=== PATIENT | female | born 1985 | race Caucasian/White ===

== ENCOUNTER 2016-11-21 09:49 | Inpatient (IN) ==
[2016-11-21 10:04] LABS: URINE SOURCE CLEAN CATCH
[2016-11-21 10:07] LABS: MANUAL DIFF NEEDED? NO
[2016-11-21 10:09] LABS: BILIRUBIN URINE NEGATIVE (NEGATIVE); BLOOD URINE NEGATIVE (NEGATIVE); COLOR YELLOW; GLUCOSE URINE NEGATIVE (NEGATIVE); LEUKOCYTES URINE SMALL (NEGATIVE); NITRITE URINE NEGATIVE (NEGATIVE); PH URINE 5.5; PROTEIN URINE 50 mg/dL (NEGATIVE); SP GRAVITY URINE 1.037; TURBIDITY URINE TURBID (CLEAR); URINE MICRO REVIEW NEEDED? YES; UROBILINOGEN URINE NORMAL (NORMAL)
[2016-11-21] MEDS ORDERED: ATIVAN IM ONE (10:09)
[2016-11-21 10:17] LABS: BASO% 0.4 % (0.0-0.8); EOS# 0.04 X1000 (0.0-0.7); EOS% 0.2 % (0.0-10.0); HEMATOCRIT 40.2 % (37.0-47.0); HEMOGLOBIN 13.9 g/dL (12.0-16.0); IMM GRAN# 0.06 X1000 (0.0-0.04); IMM GRAN% 0.3 % (0.0-0.5); LYMPH# 3.91 X1000 (1.2-3.4); LYMPH% 20.5 % (20.5-51.1); MCH 30.3 PG (27-31); MCHC 34.6 g/dL (33-37); MCV 87.8 FL (81-99); MONO# 1.29 X1000 (0.11-0.59); MONO% 6.8 % (1.7-9.3); MPV 10.3 FL (7.4-10.4); NEUT% 71.8 % (42.2-75.2); PLT 331 X1000 (130-400); RBC 4.58 XMIL (4.2-5.4)
[2016-11-21 10:27] LABS: UR EPITHELIAL CELLS <10 /HPF (<10); URINE BACTERIA 2+ /HPF; URINE CASTS NONE SEEN; URINE CULTURE NEEDED? YES; URINE RBC <10 /HPF (<10); URINE WBC TNTC /HPF (<10)
[2016-11-21 10:30] LABS: AGAP 17; ALBUMIN 4.5 g/dL (3.5-5.0); ALKALINE PHOSPHATASE 48 U/L (32-104); BUN 11 mg/dL (8-22); CALCIUM 9.1 mg/dL (8.8-10.2); CHLORIDE 99 mmol/L (98-107); COSMO 276; GOT 18 U/L (10-30); GPT 19 U/L (10-36); POTASSIUM 3.6 mmol/L (3.5-5.1); SODIUM 139 mmol/L (136-145); TCO2 23 mmol/L (25-35); TOTAL BILIRUBIN 0.41 mg/dL (0.20-1.00); TOTAL PROTEIN 7.2 g/dL (6.3-8.3)
[2016-11-21 10:46] LABS: UR AMPHETAMINES MT PRESUMPTIVE POS (NONE DETECT); UR BARBITUATES MT NONE DETECTED (NONE DETECT); UR BENZODIAZ MT NONE DETECTED (NONE DETECT); UR CANNABIS MEDTOX PRESUMPTIVE POS (NONE DETECT); UR COCAINE MT NONE DETECTED (NONE DETECT); UR METHADONE MEDTOX NONE DETECTED (NONE DETECT); UR OPIATES MT NONE DETECTED (NONE DETECT); UR OXYCODONE MEDTOX NONE DETECTED (NONE DETECT); UR PCP MEDTOX NONE DETECTED (NONE DETECT)
[2016-11-21] MEDS ORDERED: SEPTRA DS PO ONE (10:48)
[2016-11-21 10:49] LABS: FREE T4 1.6 ng/dL (0.93-1.70)
--- NOTE | 2016-11-21 12:38 | PROVIDER DOCUMENTATION ---
This chart was entered by Evens Antoine Scribe, acting as scribe for Hudson Mendez CRNP. HPI-Psychological Disorder - General Chief Complaint: Psych Stated Complaint: PSYCH Time Seen by Provider: 11/21/16 09:59 Source: patient Unable to obtain history due to:: altered Allergies/Adverse Reactions: Patient Allergies Allergy/AdvReac Type Severity Reaction Status Date / Time cephalexin monohydrate * Allergy Severe RASH Verified 11/08/16 02:23 [From Keflex] Cephalosporins Allergy Severe RASH Verified 11/08/16 02:23 Penicillins Allergy Severe RASH Verified 11/08/16 02:23 Home Medications: Home Medication List Medication Instructions Recorded Confirmed Last Taken Type Cyanocobalamin [Vitamin B-12] 250 microgm PO DAILY tablet 11/11/16 Unknown Rx Ergocalciferol (Vitamin D2) 50,000 unit PO Q7D capsule 11/11/16 Unknown Rx [Vitamin D] Olanzapine [Zyprexa] 5 mg PO QAM #30 tablet 11/11/16 Unknown Rx Olanzapine [Zyprexa] 15 mg PO QHS #45 tablet 11/11/16 Unknown Rx Trazodone [Desyrel] 50 mg PO QHS #30 tablet 11/11/16 Unknown Rx - History of Present Illness-Psych Nature of Presenting Problem: Patient is 31 y/o F that presents to the ER via EMS after being found in a ditch by . She refused to get out, he called EMS. patient was found to be in a manic state. patient is rambling on and has flight of ideas. patient is difficult to communicate with. History of bipolar and schizophrenia Onset/Duration: reports: unsure Timing: reports: still present, constant Severity: reports: moderate, severe Situational problems related to:: reports: N/A Psychiatric Complaints: reports: altered mental status, hallucinating. denies: depressed, homicidal thoughts, suicidal ideation Substance Use: reports: marijuana Patient arrived by:: EMS called by spouse/family Similar Symptoms Previously?: Yes Recently seen or treated by another doctor?: No Review of Systems - Adult - REVIEW OF SYSTEMS - ADULT ROS:: unobtainable per condition Constitutional: denies: chills, fever Eyes: reports: no symptoms reported Ears, Nose, Mouth & Throat: reports: no symptoms reported Cardiovascular: denies: chest pain, orthopnea, palpitations Respiratory: denies: cough, shortness of breath, wheezing Gastrointestinal: denies: abdominal pain, diarrhea, nausea, vomiting Genitourinary: reports: no symptoms reported Musculoskeletal: reports: no symptoms reported Integumentary: reports: no symptoms reported Neurological: reports: no symptoms reported Psychiatric: reports: anxiety, alcohol/drug dependence, emotional problems. denies: depression, suicidal thoughts Endocrine: reports: no symptoms reported Hematologic/Lymphatic: reports: no symptoms reported Allergic/Immunologic: reports: no symptoms reported All Other Systems: Reviewed and Negative Past History - Adult - PAST MEDICAL HISTORY-ADULT Review of Records: reports: Old Records Reviewed, Nursing Assessment Review, Medications Reviewed Respiratory: reports: asthma Obstetrical/Gynecological: reports: ovarian cysts Psychiatric: reports: anxiety, bipolar, schizophrenia - PRIOR SURGERIES/PROCEDURES Surgical/Procedure History: reports: none - IMMUNIZATION STATUS Childhood Immunizations: See Nurse Assessment Flu Vaccine: See Nurse Assessment - FAMILY HISTORY Family History: reviewed, not pertinent - SOCIAL HISTORY Smoking: cigarettes, less than 1 pack/day Substance Use: marijuana Alcohol Use Frequency: occasionally Living Situation: family Physical Exam-Psych Focus - Physical Exam-Psych Exam Limited by: patient condition Initial Vital Signs Reviewed: Yes Appearance: anxious, disheveled, impaired insight, impaired recent memory, impaired remote memory, mild distress Neurological: anxious, disoriented x 3 Behavior/Eye Contact/Speech: increased rate of speech, belligerent Thoughts/Hallucinations: flight of ideas, incoherent. negative: persecution HENMT: normocephalic/atraumatic, moist mucous membranes, normal ENT inspection Neck: non-tender, full range of motion, normal inspection Respiratory: lungs clear, normal breath sounds, no respiratory distress, no accessory muscle use Cardiovascular: regular rate, rhythm, no edema, no murmur Abdominal Exam: normal bowel sounds, non tender, soft Extremity: normal range of motion, normal inspection, no pedal edema Integumentary: normal color, warm/dry Progress - PLAN OF CARE/RESULTS Progress/Plan/Lab Results: Vital Signs - 8 hr 11/21/16 09:53 Temperature 98.6 F Pulse Rate 98 H Respiratory Rate 18 Blood Pressure 136/87 O2 Sat by Pulse Oximetry 98 Laboratory Results - last 24 hr 11/21/16 11/21/16 11/21/16 09:54 09:54 10:00 WBC RBC Hgb Hct MCV MCH MCHC RDW Std Deviation Plt Count MPV Immature Gran % (Auto) Neut % (Auto) Lymph % (Auto) Antelope % (Auto) Eos % (Auto) Baso % (Auto) Immature Gran # (Auto) Neut # (Auto) Lymph # (Auto) Antelope # (Auto) Eos # (Auto) Baso # (Auto) Sodium Potassium Chloride Carbon Dioxide Anion Gap BUN Creatinine Estimated GFR/1.73 m2 BUN/Creatinine Ratio Glucose Calculated Osmolality Calcium Total Bilirubin AST ALT Alkaline Phosphatase Total Protein Albumin Globulin Albumin/Globulin Ratio Vitamin B12 TSH Free T4 Urine Source CLEAN CATCH Urine Color YELLOW Urine Turbidity TURBID Urine pH 5.5 Ur Specific [place] 1.037 Urine Protein 50 A Ur Glucose (Stick) NEGATIVE Ur Ketones (Stick) NEGATIVE Urine Blood NEGATIVE Urine Nitrite NEGATIVE Urine Bilirubin NEGATIVE Urobilinogen Dipstick NORMAL Urine Leukocytes SMALL A Urine WBC (Auto) TNTC A Urine RBC (Auto) <10 U Epithel Cells (Auto) <10 Urine Bacteria (Auto) 2+ Urine Crystals Not Reportable Small Round Cells Not Reportable Urine Casts NONE SEEN Urine Yeast-like Cells Not Reportable Urine Test NEGATIVE Urine Opiates Screen Ur Oxycodone Screen Urine Methadone Screen Ur Barbiturates Screen Ur Phencyclidine Scrn Ur Amphetamines Screen U Benzodiazepines Scrn Urine Cocaine Screen U Cannabinoids Screen Plasma/Serum Ethyl Alc 11/21/16 11/21/16 11/21/16 10:00 10:00 10:00 WBC 19.09 H RBC 4.58 Hgb 13.9 Hct 40.2 MCV 87.8 MCH 30.3 MCHC 34.6 RDW Std Deviation 13.3 Plt Count 331 MPV 10.3 Immature Gran % (Auto) 0.3 Neut % (Auto) 71.8 Lymph % (Auto) 20.5 Antelope % (Auto) 6.8 Eos % (Auto) 0.2 Baso % (Auto) 0.4 Immature Gran # (Auto) 0.06 H Neut # (Auto) 13.72 H Lymph # (Auto) 3.91 H Antelope # (Auto) 1.29 H Eos # (Auto) 0.04 Baso # (Auto) 0.07 Sodium 139 Potassium 3.6 Chloride 99 Carbon Dioxide 23 L Anion Gap 17 BUN 11 Creatinine 0.7 Estimated GFR/1.73 m2 > 60 BUN/Creatinine Ratio 16 Glucose 90 Calculated Osmolality 276 Calcium 9.1 Total Bilirubin 0.41 AST 18 ALT 19 Alkaline Phosphatase 48 Total Protein 7.2 Albumin 4.5 Globulin 2.7 Albumin/Globulin Ratio 1.7 Vitamin B12 439 TSH 1.88 Free T4 1.60 Urine Source Urine Color Urine Turbidity Urine pH Ur Specific [place] Urine Protein Ur Glucose (Stick) Ur Ketones (Stick) Urine Blood Urine Nitrite Urine Bilirubin Urobilinogen Dipstick Urine Leukocytes Urine WBC (Auto) Urine RBC (Auto) U Epithel Cells (Auto) Urine Bacteria (Auto) Urine Crystals Small Round Cells Urine Casts Urine Yeast-like Cells Urine Test Urine Opiates Screen Ur Oxycodone Screen Urine Methadone Screen Ur Barbiturates Screen Ur Phencyclidine Scrn Ur Amphetamines Screen U Benzodiazepines Scrn Urine Cocaine Screen U Cannabinoids Screen Plasma/Serum Ethyl Alc 11/21/16 10:27 WBC RBC Hgb Hct MCV MCH MCHC RDW Std Deviation Plt Count MPV Immature Gran % (Auto) Neut % (Auto) Lymph % (Auto) Antelope % (Auto) Eos % (Auto) Baso % (Auto) Immature Gran # (Auto) Neut # (Auto) Lymph # (Auto) Antelope # (Auto) Eos # (Auto) Baso # (Auto) Sodium Potassium Chloride Carbon Dioxide Anion Gap BUN Creatinine Estimated GFR/1.73 m2 BUN/Creatinine Ratio Glucose Calculated Osmolality Calcium Total Bilirubin AST ALT Alkaline Phosphatase Total Protein Albumin Globulin Albumin/Globulin Ratio Vitamin B12 TSH Free T4 Urine Source Urine Color Urine Turbidity Urine pH Ur Specific [place] Urine Protein Ur Glucose (Stick) Ur Ketones (Stick) Urine Blood Urine Nitrite Urine Bilirubin Urobilinogen Dipstick Urine Leukocytes Urine WBC (Auto) Urine RBC (Auto) U Epithel Cells (Auto) Urine Bacteria (Auto) Urine Crystals Small Round Cells Urine Casts Urine Yeast-like Cells Urine Test Urine Opiates Screen NONE DETECTED Ur Oxycodone Screen NONE DETECTED Urine Methadone Screen NONE DETECTED Ur Barbiturates Screen NONE DETECTED Ur Phencyclidine Scrn NONE DETECTED Ur Amphetamines Screen PRESUMPTIVE POS A U Benzodiazepines Scrn NONE DETECTED Urine Cocaine Screen NONE DETECTED U Cannabinoids Screen PRESUMPTIVE POS A Plasma/Serum Ethyl Alc Orders Category Date Time Status Regular Diet Diet 11/21/16 10:38 Active ALCOHOL BLOOD Stat Lab 11/21/16 10:00 Completed CBC WITH ELECTRONIC DIFF [HEME] Stat Lab 11/21/16 10:00 Completed COMPREHENSIVE METABOLIC PANEL [CHEM] Stat Lab 11/21/16 10:00 Completed FREE T4 Stat Lab 11/21/16 10:00 Completed TEST-URINE [PREG] Stat Lab 11/21/16 09:54 Completed TSH Stat Lab 11/21/16 10:00 Completed URINALYSIS W/POSS RFLX CULT-1 [URINALYSIS] Stat Lab 11/21/16 09:54 Completed URINE CULTURE [RM] Routine Lab 11/21/16 10:28 Received URINE DRUG SCREEN MEDTOX Routine Lab 11/21/16 10:27 Completed URINE MANUAL MICROSCOPIC [URINALYSIS] Stat Lab 11/21/16 09:54 Completed VITAMIN B12 Stat Lab 11/21/16 10:00 Completed Lorazepam [Ativan] Med 11/21/16 10:09 Discontinued 2 mg IM NOW ONE Sulfamethoxazole/Tmp D.s. [Septra Ds] Med 11/21/16 10:48 Discontinued 1 each PO NOW ONE Discussed with Keisha from [facility] and she states that due to the drugs in her system , she cannot get a hold but the patient is not SI or HI and doesn't meet admission criteria for [facility]. Discussed results and situation with Dr. Rush and he agrees with not letting the patient leave because she is altered and not making sense. He suggests admitting the patient. Discussed results and plan of care with patient. Patient agrees with plan and verbalizes understanding. Result Diagrams: 11/21/16 10:00 11/21/16 10:00 - CONSULTS/PCP/HOSPITALIST Notification #1 *Consult/PCP/Hospitalist*: Ale for Time Discussed: 12:36 Reason/Comments: Admission Consult Disposition: Will see in ED, Admit (Ale will put in orders) Departure - Departure Date of Disposition Decision: 11/21/16 Time of Disposition Decision: 12:36 DIAGNOSIS: Toxic encephalopathy UTI (urinary tract infection) Qualifiers: Urinary tract infection type: acute cystitis Hematuria presence: without hematuria Qualified Code(s): N30.00 - Acute cystitis without hematuria Leukocytosis Qualifiers: Leukocytosis type: unspecified Qualified Code(s): D72.829 - Elevated white blood cell count, unspecified Disposition: ADMITTED INPATIENT 09 Certified Medical Emergency: Emergent Condition: Stable Referrals and Follow-Ups: None,PCP [Primary Care Provider] - - Critical Care Note This patient required my direct & personal management of CC.: No Attestation - Physician/ SAVANAH Attestation Patient care was provided by Advanced Practice Provider:: Yes Advanced Practice Provider:: Hudson Mendez (The physician is on site and was consulted but did not have face to face contact with the patient.) Advanced Practice Provider documentation review:: The Mid-level provider documentation, treatment plan and medical decision making was reviewed by the physician who agrees with all treatment and medical decision making by the MLP. The physician spent face to face time with patient:: No Advanced Practice Provider documentation review:: Supervising physician onsite and consulted in the evaluation and care of this patient. The physician did not have a face to face encounter with the patient. This chart was documented by the indicated scribe, (Evens Antoine, Elisa) and accurately reflects the services I performed and decisions made by me, Hudson Mendez CRNP, as attested by the provider's signature.
--- NOTE | 2016-11-21 18:16 | HISTORY AND PHYSICAL ---
PRIMARY CARE PROVIDER: None. CHIEF COMPLAINT: Found down in a ditch passed out. HISTORY OF PRESENT ILLNESS: Ms. Eugenia Duran is a 31-year-old female with a history of bipolar disorder, schizoaffective disorder with multiple episodes of digna who also has a history of using amphetamines and cannabis. She apparently was just recently admitted to [facility] from 11/08 to 11/11 for an acute episode of her schizoaffective disorder and bipolar. She was sent home on Zyprexa twice a day and trazodone as she was admitted without any home medications. Apparently sometime today she was found in a ditch. No one was able to get her out of the ditch until police and ambulance arrived. She was brought in by EMS. According to the nurse she is very manic, had word salad and delusional thoughts. In my ability to assess this patient she had just received Ativan and was completely nonverbal at this time. Would ignore my attempts to wake her up. She would roll to one side, refused to look at me and refused to speak. The urine drug screen was positive for amphetamines and for cannabis. She does have small sores throughout her arms bilaterally likely secondary to amphetamine use. Will use Ativan as needed for severe agitation. We will admit to the ICU for close observation. PAST MEDICAL HISTORY: Schizoaffective disorder, bipolar type. Amphetamine use. Cannabis use. Apparently has a history of asthma. SURGICAL HISTORY: Looking at old records she has not had a history of surgeries. SOCIAL HISTORY: As patient was unable to speak with me, apparently she does smoke marijuana and takes amphetamines according to past records, and her urine drug screen is also positive for these. FAMILY HISTORY: She has a cousin who has bipolar disorder. REVIEW OF SYSTEMS: Unable to obtain as patient was sedated. ALLERGIES: Cephalexin, monohydrate, cephalosporins and penicillins. HOME MEDICATIONS: Zyprexa 15 mg p.o. nightly and 5 mg p.o. daily. Trazodone 50 mg p.o. nightly. PHYSICAL EXAMINATION: VITAL SIGNS: Temperature is 98.6 degrees, heart rate 98, respiratory rate 18, blood pressure 136/87, O2 saturation 98% on room air. She is 5 feet 2 inches tall, 140 pounds , BMI 25.6. GENERAL: Ms. Eugenia Duran is a 31-year-old, female. She is in no acute distress. She is very lethargic and sedated. Will not speak. Pupils are equal, reactive though. HEENT: Atraumatic, normocephalic. Pupils are equal, round, reactive to light but mildly sluggish. Mucous membranes are dry. NECK: Trachea midline. CARDIOVASCULAR: S1, S2. Regular rate and rhythm. No rubs, gallops, murmurs. No edema noted in the lower extremities. No JVD or carotid bruits. PULMONARY: Clear to auscultation. Bilateral breath sounds. No accessory muscle use or work of breathing noted. GI: Soft, nontender, nondistended. Positive bowel sounds x4. EXTREMITIES: +2 dorsalis and radial pulses. No edema noted. Moves all extremities equally. SKIN: Warm, dry, intact except for multiple small lesions across both arms. NEUROLOGIC: Sedated. LABORATORY DATA: White blood cells 19,000, hemoglobin 13, hematocrit 40, platelet count 331,000. Sodium 139, potassium 3.6, BUN 11, creatinine 0.7, glucose 90, calcium 9.1, total bilirubin 0.41. AST 18, ALT 19. TSH 1.88, free T4 is 1.6. B12 is 439. Urinalysis 50 protein, small leukocytes, too numerous to count white blood cells, 2+ bacteria. Urine drug screen positive for amphetamines and cannabinoids. Alcohol level is negative. IMAGING: None. ASSESSMENT AND PLAN: 1. Schizoaffective disorder, bipolar type likely with manic episode secondary to amphetamine use. According to the who is not at the bedside, this was per the nurse, the patient has been taking her medications as prescribed. [facility] has evaluated and she is not a candidate for transfer to [place] at this time. Will resume her Zyprexa and trazodone. 2. Urinary tract infection. Unable to assess any symptoms. She received Bactrim in the ER. We will continue with antibiotic treatment. 3. Amphetamine use and cannabinoid use. Will discuss cessation once she is more alert. Dictated by QUIRINO Hawkins for Elliott Romero MD Patient seen and examined. Agree with QUIRINO note. It reflects my assessment and plan. Patient is lethargic and not possible to obtain information from her. Vitals stable. Patient will be sent to ICU for better monitoring. At this point I dont know if she was trying to kill herself or not. Patient recently seen in [place]. Will continue with aggressive fluid resuscitation and check BMP daily to see if there is any electrolyte imbalance that we may need to correct. When medically stable will consult [place]. cc: QUIRINO Hawkins MD MTDD
[2016-11-21] MEDS ORDERED: NS 1,000 ML IV SCH (22:31)
[2016-11-21] MEDS ORDERED: TYLENOL PO PRN (22:31)
[2016-11-21] MEDS ORDERED: ATIVAN IV PRN (22:31)
[2016-11-21] MEDS ORDERED: ZOFRAN IV PRN (22:31)
[2016-11-21] MEDS: LEVAQUIN 500 MG/D5W 500 MG/100 ML IVPB IV SCH (23:21)
[2016-11-22] MEDS: ZYPREXA PO SCH ×3 (00:26→20:57)
[2016-11-22] MEDS: DESYREL PO SCH ×2 (00:26→20:58)
[2016-11-22 06:50] LABS: MANUAL DIFF NEEDED? NO
[2016-11-22 06:57] LABS: BASO% 0.5 % (0.0-0.8); EOS# 0.18 X1000 (0.0-0.7); EOS% 1.7 % (0.0-10.0); HEMATOCRIT 38.9 % (37.0-47.0); HEMOGLOBIN 13.2 g/dL (12.0-16.0); LYMPH# 3.26 X1000 (1.2-3.4); LYMPH% 30.4 % (20.5-51.1); MCH 30.1 PG (27-31); MCHC 33.9 g/dL (33-37); MCV 88.8 FL (81-99); MONO% 9.3 % (1.7-9.3); MPV 10.4 FL (7.4-10.4); NEUT% 58.1 % (42.2-75.2); PLT 269 X1000 (130-400); RBC 4.38 XMIL (4.2-5.4)
[2016-11-22 07:22] LABS: AGAP 10; ALBUMIN 3.7 g/dL (3.5-5.0); ALKALINE PHOSPHATASE 43 U/L (32-104); BUN 10 mg/dL (8-22); CALCIUM 8.5 mg/dL (8.8-10.2); CHLORIDE 100 mmol/L (98-107); COSMO 272; GOT 15 U/L (10-30); GPT 15 U/L (10-36); POTASSIUM 3.3 mmol/L (3.5-5.1); SODIUM 137 mmol/L (136-145); TCO2 27 mmol/L (25-35); TOTAL BILIRUBIN 0.32 mg/dL (0.20-1.00); TOTAL PROTEIN 6.1 g/dL (6.3-8.3)
[2016-11-22] MEDS ORDERED: NS 1,000 ML IV ONE (07:45)
[2016-11-22] MEDS ORDERED: NS 1,000 ML IV SCH (07:45)
[2016-11-22] MEDS: LOVENOX SUBQ SCH (08:46)
--- NOTE | 2016-11-22 10:50 | PROGRESS NOTE ---
DATE: 11/22/2016 SUBJECTIVE: Patient reports feeling fine. Denies any pain, nausea, vomiting. OBJECTIVE: Vital Signs: Temperature 96.8, heart rate 69, respiratory rate 12, blood pressure 92/50, O2 saturation 100% on room air. General Examination: This is a little bit sleepy, disheveled, 31-year-old, female lying in bed, in no acute distress. HEENT: Head is normocephalic, atraumatic. Neck: Supple. No JVD noted. No carotid bruits. No lymphadenopathy. No thyromegaly. Cardiovascular: S1, S2 heard. No murmurs, gallops, or rubs. Regular rate and rhythm. Respiratory: Clear bilaterally to auscultation. No work of breathing or using accessory muscles. Abdomen: Soft, nontender to palpation. Bowel sounds present. No organomegaly. Extremities: No clubbing, cyanosis, or edema. Peripheral pulses present in both legs. Neurological: Patient is more awake today. Moves 4 extremities. LABORATORY DATA: The CBC is completely unremarkable and BMP shows potassium 3.3 and the rest of the exam is completely normal. ASSESSMENT: 1. Toxic encephalopathy. 2. Polysubstance abuse. 3. Schizoaffective disorder. 4. Urinary tract infection. PLAN: Patient was basically admitted to the hospital because of metabolic encephalopathy and altered mental status secondary to drug overdose. Patient had bipolar disorder and schizoaffective disorder with multiple episodes of digna and also history of using amphetamines and also marijuana. She was admitted at this time for the same reason, but by now, she is more awake. The labs are completely fine except mild hypokalemia that is going to be repeated today. Vitals are stable except mild low blood pressure in the 90s. We will provide IV fluids to help her wash out all these drugs. As soon as she is more alert tomorrow, will consult [place] to see if she needs to be admitted as an inpatient or not. For the schizoaffective disorder and bipolar disorder, we are going to continue with her home medications. For urinary tract infection, she is on Bactrim, and we will continue with the same management. For polysubstance abuse, patient has been advised about stopping using drugs. DISPOSITION: We will keep this patient here in the intensive care unit until tomorrow and if she is accepted by [facility], will transfer her. If they evaluate and say that she is okay, we will discharge her. cc: Elliott Romero MD
[2016-11-22] MEDS: NS 1,000 ML IV SCH ×4 (11:38→23:29)
[2016-11-22] MEDS: LEVAQUIN 500 MG/D5W 500 MG/100 ML IVPB IV SCH (18:02)
[2016-11-23] MEDS: NS 1,000 ML IV SCH ×2 (04:40→07:58)
[2016-11-23] MEDS: LOVENOX SUBQ SCH (07:58)
[2016-11-23] MEDS: ZYPREXA PO SCH (07:59)
[2016-11-23 13:10] VITALS: BP 119/53
--- NOTE | 2016-11-24 03:27 | DISCHARGE SUMMARY ---
ADMISSION DATE: 11/21/2016 DISCHARGE DATE: 11/23/2016 DATE OF ADMISSION: 11/21/2016. DATE OF DISCHARGE: 11/23/2016. CONSULTATIONS: [facility], which the patient refused. PERTINENT PROCEDURES: None. DISCHARGE DIAGNOSES: 1. Toxic encephalopathy, resolved. 2. Polysubstance abuse. Patient has been educated on abstinence. 3. Schizoaffective disorder. The patient will continue home medications. 4. Urinary tract infection. The patient will continue with p.o. antibiotics. HOSPITAL COURSE: Ms. Duran is a 31-year-old, female with a history of bipolar disorder, schizoaffective disorder with multiple episodes of digna, who has a history of using amphetamines and cannabis. Recently admitted to [facility] on 11/08 to 11/11 for acute episode of her schizoaffective disorder and bipolar. She was sent home on Zyprexa twice a day and trazodone. She was admitted without any home medications. Apparently on the day of her admission, she was found in a ditch. No one was able to get her out of the ditch until the police and ambulance arrived. She was brought in by EMS. According to the nurse, she was very manic. Had word salad and delusional thoughts. She did receive Ativan in the ED and at the time of the 's initial assessment she was completely nonverbal and would not cooperate in the interview. The urine drug screen was positive for amphetamines and cannabis. She had small sores throughout her arms bilaterally, likely secondary to amphetamine use. She was admitted to the ICU for close observation and Ativan was ordered p.r.n. for severe agitation. Laboratory data showed a white count of 19, an hemoglobin and hematocrit of 13 and 40, a sodium 139, a potassium of 36, BUN 11, creatinine of 0.7, a blood glucose of 90. Her urinalysis showed small leukocytes too numerous to count, white blood cells, 2+ bacteria. Alcohol level was negative. She was resumed on her Zyprexa and trazodone. Resumed on p.o. Bactrim for her urinary tract infection, as well as started on IV fluid. The patient was approaching time for discharge. We did consult [facility]. However, she refuses their consult and states that she is not suicidal. There has been no changes to her home medication and she is discharged by . VITAL SIGNS: Temperature is 97.2 degrees, heart rate 66, respirations 11, blood pressure 108/63, O2 is 100% on room air. DISCHARGE DIET: Regular. DISCHARGE MEDICATIONS: 1. Zyprexa 15 mg p.o. at bedtime. 2. Zyprexa 5 mg p.o. in the morning. 3. Desyrel 50 mg p.o. at bedtime. FOLLOWUP: Ms. Duran is being discharged home. She is to continue to follow up with her psychiatrist as indicated, as well as her primary care physician, take all medication and antibiotics as prescribed. She can return to the ED for any worsening of symptoms. This is QUIRINO Sheikh, doing a discharge summary for . Dictated by QUIRINO Sheikh for Elliott Romero MD cc: Elliott Romero MD
== END 2016-11-23 12:45 | disposition home or self-care (01) ==
LOC: ED 09:49 → EDIPHOLD 15:34 → ICU 18:53 → EDIPHOLD 21:01 → ICU 21:18
PROVIDERS: ATTEND Internal Medicine